=== PATIENT | male | born 1990 | race Caucasian/White ===

== ENCOUNTER 2016-09-20 18:11 | Emergency (ER) | payer OTHER ==
[~2016-09-20] VITALS: Ht 177.8 cm; Wt 67.6 kg
[2016-09-20 18:30] VITALS: BP 128/79
== END 2016-09-20 19:13 | disposition home or self-care (01) ==
LOC: ED 18:11
DX: F41.9 Anxiety disorder, unspecified (principal); J45.909 Unspecified asthma, uncomplicated